=== PATIENT | male | born 1960 | race Caucasian/White ===

== ENCOUNTER 2022-05-15 07:46 | Outpatient (CLI) | payer BC | END 2022-05-15 07:47 | disposition home or self-care (01) | LOC: TBSIIMAG 07:46 | PROVIDERS: ATTEND Neurological Surgery | DX: M48.062 Spinal stenosis, lumbar region with neurogenic claudication (principal); M51.36 Other intervertebral disc degeneration, lumbar region; M51.37 Other intervertebral disc degeneration, lumbosacral region; M47.816 Spondylosis without myelopathy or radiculopathy, lumbar region; M43.16 Spondylolisthesis, lumbar region | CPT/HCPCS: 72148 ==

== ENCOUNTER 2022-08-07 08:43 | Outpatient (CLI) | payer BC | END 2022-08-07 08:44 | disposition home or self-care (01) | LOC: TBSIIMAG 08:43 | PROVIDERS: ATTEND Neurological Surgery | DX: M43.16 Spondylolisthesis, lumbar region (principal); Z98.890 Other specified postprocedural states | CPT/HCPCS: 72100 ==

== ENCOUNTER 2022-09-25 13:20 | Outpatient (CLI) | payer BC | END 2022-09-25 13:21 | disposition home or self-care (01) | LOC: TBSIIMAG 13:20 | PROVIDERS: ATTEND Neurological Surgery | DX: M43.16 Spondylolisthesis, lumbar region (principal); M47.816 Spondylosis without myelopathy or radiculopathy, lumbar region; Z98.890 Other specified postprocedural states | CPT/HCPCS: 72100 ==